=== PATIENT | male | born 1965 ===

== ENCOUNTER 2024-03-13 13:04 | Emergency (ER) | payer OTHER ==
[2024-03-13] MEDS ORDERED: KETOROLAC 15 MG/ML 1 ML VIAL ONE (14:42)
[2024-03-13] MEDS ORDERED: LIDOCAINE 1% INJ 10MG/ML (20 ML MDV) ONE (14:42)
[2024-03-13] MEDS ORDERED: DIPH,PERTUS(ACELL)TETVAC-LF 0.5 ML VIAL IM ONE (14:42)
[2024-03-13] MEDS ORDERED: LIDOCAINE 1%-EPI 1:100,000 20 ML VIAL ONE (14:47)
[2024-03-13] MEDS ORDERED: ACETAMINOPHEN TAB 325 MG TAB ONE (16:43)
== END 2024-03-13 17:05 | disposition home or self-care (01) ==
LOC: EC 13:04
DX: S01.81XA Laceration without foreign body of other part of head, initial encounter (principal); Z23 Encounter for immunization; W26.8XXA Contact with other sharp object(s), not elsewhere classified, initial encounter; Y99.0 Civilian activity done for income or pay
CPT/HCPCS: 90715; 99282; 96372; 90471; J1885